=== PATIENT | female | born 1975 | race Hispanic/Latino ===

== ENCOUNTER 2017-03-14 15:42 | Emergency (ER) | payer OTHER ==
[~2017-03-14] VITALS: Ht 165.1 cm; Wt 104.3 kg
[~2017-03-14 15:42] MED LIST: ASPIRIN81 MG PO; ATORVASTATIN CA80 MG PO; FERROUS FUMARA324 MG PO; LISINOPRIL20 MG PO; LYRICA75 MG PO; METFORMIN HCL500 MG PO; OMEGA 3 1,0001 EACH PO; VITAMIN C1000 MG PO
[2017-03-14] MEDS ORDERED: ONDANSETRON HCL INJ 2 MG/ML VIAL IV STA ×2 (15:48→19:34)
[2017-03-14] MEDS ORDERED: SODIUM CHLORIDE 0.9% 1000ML 1,000 ML IV STA (15:48)
[2017-03-14] MEDS ORDERED: MORPHINE SULFATE 4 MG/ML SYR IV STA ×2 (15:48→19:34)
[2017-03-14 16:41] LABS: BILIRUBIN,URINE NEGATIVE (NEGATIVE); KETONES,URINE NEGATIVE (NEGATIVE); LEUKOCYTE ESTERASE ,URINE NEGATIVE (NEGATIVE); NITRITE,URINE NEGATIVE (NEGATIVE); PROTEIN,URINE DIPSTICK NEGATIVE (NEGATIVE); URINE UROBILINOGEN 0.2 mg/dL (0.2 - 1)
[2017-03-14 16:43] LABS: CLARITY,URINE CLEAR (CLEAR); COLOR,URINE YELLOW (YELLOW)
[2017-03-14 17:00] LABS: BACTERIA,URINE MODERATE /HPF; EPITHELIAL CELLS,URINE MODERATE /LPF
--- NOTE | 2017-03-14 18:47 | Diagnostic Imaging Report ---
PROCEDURE: CT ABDOMEN AND PELVIS WITHOUT CONTRAST TECHNIQUE: The abdomen and pelvis were scanned utilizing a multidetector helical scanner from the diaphragm to the lesser trochanter without contrast per stone protocol. Coronal and sagittal multiplanar reformations were obtained. Total DLP: 795.79 mGy-cm COMPARISON: CT abdomen pelvis 09/12/2016. INDICATIONS: RIGHT FLANK PAIN FINDINGS: ABSENCE OF INTRAVENOUS CONTRAST DECREASES SENSITIVITY FOR DETECTION OF FOCAL LESIONS AND VASCULAR PATHOLOGY. LOWER THORAX: Subtle geographic ground glass opacity in the left lower lobe, which was previously present and likely represents mild air trapping. HEPATOBILIARY: No focal hepatic lesions. No biliary ductal dilatation. Cholecystectomy clips. SPLEEN: No splenomegaly. PANCREAS: No focal masses or ductal dilatation. ADRENALS: No adrenal nodules. KIDNEYS/URETERS: No hydronephrosis or solid mass lesions. No change in punctate calculi in the right kidney upper pole (image 73) and lower pole (image 32). Unchanged parenchymal calcification in the lower pole (series 3 image 98). No change in punctate calcification in the upper pole left kidney (series 3 image 69). No ureteral or bladder stone. PELVIC ORGANS/BLADDER: Unremarkable. PERITONEUM / RETROPERITONEUM: No free air or fluid. Calcified epiploic appendage in the left mid abdomen (series 3 image 124). LYMPH NODES: No lymphadenopathy. VESSELS: Unremarkable. Retroaortic left renal vein. GI TRACT: No distention or wall thickening. Partially visualized appendix is normal. BONES AND SOFT TISSUES: Unremarkable. IMPRESSION: Stable punctate bilateral renal calculi. Dictated by: Craig Conte M.D. on 03/14/2017 at 18:56 Electronically approved by: Craig Conte M.D. on 03/14/2017 at 18:56
[2017-03-14] MEDS ORDERED: SODIUM CHLORIDE 0.9% 1000ML 1,000 ML ONE (19:37)
[2017-03-14 19:38] LABS: BASOPHILS % 0.3 % (0.0-1.0); EOSINOPHILS # (AUTO) 0.2 (0.0-0.4); EOSINOPHILS % 2.2 % (0.0-6.0); HEMATOCRIT 31.7 % (34.2-44.1); HEMOGLOBIN 9.3 g/dL (12.0-16.0); LYMPHOCYTES # (AUTO) 3.4 (1.0-3.2); LYMPHOCYTES % 36.9 % (18.0-39.1); MEAN CORPUSCULAR HEMOGLOBIN 22.4 pg (28-32); MEAN CORPUSCULAR HGB CONC 29.3 g/dL (31-35); MEAN CORPUSCULAR VOLUME 76.4 fL (81-99); MONOCYTES # (AUTO) 0.7 (0.2-0.8); MONOCYTES % 7.1 % (4.4-11.3); NEUTROPHILS # (AUTO) 4.9 (2.1-6.9); NEUTROPHILS % 53.3 % (38.7-80.0); PLATELET COUNT 288 x10e3/uL (140-360); RED BLOOD COUNT 4.15 x10e6/uL (3.6-5.1); RED CELL DISTRIBUTION WIDTH 16.9 % (11.7-14.4)
[2017-03-14 19:53] LABS: ALANINE AMINOTRANSFERASE 12 IU/L (0-55); ALBUMIN 3.3 g/dL (3.5-5.0); ALBUMIN/GLOBULIN RATIO 0.8 (0.8-2.0); ALKALINE PHOSPHATASE 74 IU/L (40-150); ANION GAP 11.7 mmol/L (8-16); BLOOD UREA NITROGEN 12 mg/dL (7-26); BUN/CREATININE RATIO 15 (6-25); CALCIUM 8.7 mg/dL (8.4-10.2); CARBON DIOXIDE 25 mmol/L (22-29); CHLORIDE 108 mmol/L (98-107); CREATININE, SERUM 0.79 mg/dL (0.57-1.11); EST GLOMERULAR FILTRATION RATE > 60 ML/MIN (60-); GLUCOSE 112 mg/dL (74-118); POTASSIUM 3.7 mmol/L (3.5-5.1); SODIUM 141 mmol/L (136-145)
[2017-03-14] MEDS ORDERED: MORPHINE SULFATE 5 MG/ML VIAL ONE (20:27)
[2017-03-14 20:58] VITALS: BP 148/65
== END 2017-03-14 20:59 | disposition home or self-care (01) ==
LOC: ER 15:42
DX: R10.31 Right lower quadrant pain (principal); R11.0 Nausea; I10 Essential (primary) hypertension; E11.9 Type 2 diabetes mellitus without complications
CPT/HCPCS: 36415; 74176; 80053; 81001; 81025; 85025; 87086; 93005; 99284; J2270; J2405; J7030

== ENCOUNTER 2017-06-21 07:55 | Emergency (ER) | payer OTHER ==
[~2017-06-21] VITALS: Ht 165.1 cm; Wt 104.3 kg
--- OUTSIDE RECORDS SUMMARY | 2017-06-21 07:59 | XMS REPORT ---
Author Author [facility] Address Unknown Phone Unavailable Care Team Providers Care Pastry Sous Chef Name Role Phone EN SANDRA Unavailable Unavailable ELVIS SUN Unavailable Unavailable RY BRAY Unavailable Unavailable Problems This patient has no known problems. Allergies, Adverse Reactions, Alerts This patient has no known allergies or adverse reactions. Medications This patient has no known medications. Results Test Description Test Time Test Comments Text Results Atomic Results Result Comments CT ABDOMEN/PELVIS WO [place] [address] Patient Name: JOANNE STOUT MR #: [id number] : 1975 Age/Sex: 42/F Req #: [id number] Adm Physician: Ordered by: ALLA BETANCOURT ADVERTISING EDITOR Report #: [id number] Location: ER Room/Bed: Procedure: [id number] CT/CT ABDOMEN/PELVIS WO Exam Date: 03/14/17 Exam Time: 1757 REPORT STATUS: Signed PROCEDURE: CT ABDOMEN AND PELVIS WITHOUT CONTRAST TECHNIQUE: The abdomen and pelvis were scanned utilizing a multidetector helical scanner from the diaphragm to the lesser trochanter without contrast per stone protocol. Coronal and sagittal multiplanar reformations were obtained. Total DLP: 795.79 mGy- cm COMPARISON: CT abdomen pelvis 09/12/2016. INDICATIONS: RIGHT FLANK PAIN FINDINGS: ABSENCE OF INTRAVENOUS CONTRAST DECREASES SENSITIVITY FOR DETECTION OF FOCAL LESIONS AND VASCULAR PATHOLOGY. LOWER THORAX: Subtle geographic ground glass opacity in the left lower lobe, which was previously present and likely represents mild air trapping. HEPATOBILIARY: No focal hepatic lesions. No biliary ductal dilatation. Cholecystectomy clips. SPLEEN: No splenomegaly. PANCREAS: No focal masses or ductal dilatation. ADRENALS: No adrenal nodules. KIDNEYS/URETERS: No hydronephrosis or solid mass lesions. No change in punctate calculi in the right kidney upper pole (image 73) and lower pole (image 32). Unchanged parenchymal calcification in the lower pole (series 3 image 98). No change in punctate calcification in the upper pole left kidney (series 3 image 69). No ureteral or bladder stone. PELVIC ORGANS/BLADDER: Unremarkable. PERITONEUM / RETROPERITONEUM: No free air or fluid. Calcified epiploic appendage in the left mid abdomen (series 3 image 124). LYMPH NODES: No lymphadenopathy. VESSELS: Unremarkable. Retroaortic left renal vein. GI TRACT: No distention or wall thickening. Partially visualized appendix is normal. BONES AND SOFT TISSUES: Unremarkable. IMPRESSION: Stable punctate bilateral renal calculi. Dictated by: Craig Caldwell M.D. on 03/14/2017 at 18:56 Electronically approved by: Craig Caldwell M.D. on 2017 at 18:56 Dictated By: CRAIG CALDWELL MD 55 Transcribed By: JONNATHAN on 03/14/171855 COPY TO: ALLA BETANCOURT NP Stress Test - Treadmill ONLY [place] [address] Patient Name : JOANNE STOUT MR #: [id number] : 1975 Age/Sex: 42/F Adm Physician : ELVIS SUN MD Admit Date : 01/25/17 Location : [facility] Room/Bed : [place] [address] REPORT: Cardiology Report DATE OF STUDY: January 26, 2017 PROCEDURE TITLE Rest/stress single-isotope SPECT imaging with exercise stress and gated SPECT imaging. INDICATIONS: Chest pain. PROCEDURE: Patient performed treadmill exercise using a Forrest protocol, exercising for 4 minutes 26 seconds to stage 2, and completing an estimated work load of 7 metabolic equivalents (METS). The test was terminated due to fatigue. The heart rate was 80 beats per minute at baseline and increased to 162 beats per minute at peak exercise, which was 90% of maximum predicted heart rate. The rest blood pressure was 113/71 increased to 199/117 mmHg, which is a hypertensive response. Patient did not develop any symptoms other than fatigue during the procedure. The resting electrocardiogram showed normal sinus rhythm, and did not demonstrate any ST-segment changes consistent with myocardial ischemia. Myocardial perfusion imaging was performed at rest following the injection of 10.5 millicuries of tetrofosmin. At peak exercise, the patient was injected with 33 millicuries of tetrofosmin and exercise was continued for 1 minute. Gated post tomographic imaging was performed. FINDINGS: Overall quality of the study is fair. The left ventricular cavity is noted to be normal on the rest and stress studies. SPECT images demonstrate homogeneous trace effusion distribution throughout the myocardium. Gated SPECT imaging reveals normal myocardial thickening and wall motion. The left ventricular ejection fraction was normal. IMPRESSION: Myocardial perfusion imaging is normal. Overall, left ventricular systolic motion was normal without regional wall motion abnormalities. Job#: [id number] [facility] Signature Date Dictated By: ILIANA KLEIN MD Transcribed By: [facility] on 02/07/17 <Electronically signed by ILIANA KLEIN MD> <<Signature on File>>03/19/17 2448 COPY TO: CHEST SINGLE (NOT PORTABLE) [place] [address] Patient Name: JOANNE STOUT MR #: [id number] : 1975 Age/Sex: 41/F Req #: [id number] [facility] Physician: Ordered by: CHARO BOBO MD Report #: [id number] Location: Room/Bed: ___ Procedure: [id number] DX/CHEST SINGLE (NOT PORTABLE) Exam Date: 01/25/17 Exam Time: 1814 REPORT STATUS: Signed PROCEDURE: A single AP view of the chest. COMPARISON: Patients [facility], CT, CT ABDOMEN/PELVIS W, 08/14/2016, 20:33. Patients [facility], DX, CHEST SINGLE (NOT PORTABLE), 12/12/2016, 15:09. INDICATIONS: CHEST PAIN FINDINGS: Lines/tubes: None. Lungs: The lungs are well inflated. Stable 4 mm calcified granuloma in the lingula.. There is no evidence of pneumonia or pulmonary edema. Pleura: There is no pleural effusion or pneumothorax. Heart and mediastinum: The heart and the mediastinum are unremarkable. Bones: No acute bony abnormality. IMPRESSION: 1. No acute cardiopulmonary disease. Chester Cali M.D. Dictated by: Chester Cali M.D. on 01/25/2017 at 19:07 Electronically approved by: Chester Cali M.D. on 01/25/2017 at 19:07 Dictated By: CHESTER CALI MD 06 Transcribed By: JONNATHAN on 01/25/171906 COPY TO: CHARO BOBO MD CT BRAIN WO [place] [address] Patient Name: JOANNE STOUT MR #: [id number] : 1975 Age/Sex: 41/F Req #: [id number] Adm Physician: RY BRYA MD Ordered by: JANAE LOFTON MD Report #: [id number] Location: [facility] Room/Bed: [place] [address] Procedure: [id number] CT/CT BRAIN WO Exam Date: Exam Time: 1814 REPORT STATUS: Signed Examination: CT BRAIN WITHOUT CONTRAST History:Headache Comparison studies:None Technique: Axial images were obtained from the skull base to the vertex. Coronal and sagittal images reconstructed from the axial data. Intravenous contrast: None Findings: Scalp: No abnormalities. Bones: No fractures, blastic or lytic lesions. Brain sulci: Appropriate for age. Ventricles: Normal in size and configuration. No hydrocephalus. Extra-axial space: No abnormalities. Parenchyma: No abnormal densities. No masses, hemorrhage, acute or chronic vascular insults. Sellar/suprasellar region: No abnormalities. Craniocervical junction: Patent foramen magnum. No Chiari one malformation. Incidental findings: None. Impression: No intracranial abnormalities. Signed by: Dr. Moe Lai M.D. on 12/12/2016 6:50 PM Dictated By: MOE RYAN MD 49 COPY TO: JANAE LOFTON MD CHEST SINGLE (NOT PORTABLE) [place] [address] Patient Name: JOANNE STOUT MR #: [id number] : 1975 Age/Sex: 41/F Req #: [id number] Adm Physician: Ordered by: KAYLA KELSEY Report #: [id number] Location: ER Room/Bed: Procedure: [id number] DX/CHEST SINGLE (NOT PORTABLE) Exam Date : 12/12/16 Exam Time: 1015 REPORT STATUS: Signed PROCEDURE: CHEST SINGLE (NOT PORTABLE) TECHNIQUE: PA chest INDICATION: Shortness of breath; chest pain COMPARISON: None. FINDINGS: Calcified left midlung granuloma. Lungs otherwise clear and symmetrically inflated. No pleural effusions. Normal heart size and mediastinal contour. Normal pulmonary vasculature. Intact skeleton. CONCLUSION: 1. No acute abnormality. 2. Remote granulomatous disease. Dictated by: Alfonso Croft M.D. on 12/12/2016 at 15:38 Electronically approved by: Alfonso Croft M.D. on 12/12/2016 at 15:38 Dictated By: ALFONSO CROFT MD 1538 Transcribed By: JONNATHAN on 12/12/16 1538 COPY TO: KAYLA KELSEY
[2017-06-21] MEDS ORDERED: KETOROLAC TROMETHAMINE 30 MG/ML VIAL IV STA (08:18)
[2017-06-21] MEDS ORDERED: MORPHINE SULFATE 2 MG/ML SYR IV STA (08:18)
[2017-06-21] MEDS ORDERED: SODIUM CHLORIDE 0.9% 1000ML 1,000 ML IV STA (08:18)
[2017-06-21] MEDS ORDERED: ONDANSETRON HCL 4 MG ORAL DISINTEGRATING TAB ONE (08:47)
[2017-06-21 08:53] LABS: BASOPHILS % 0.3 % (0.0-1.0); EOSINOPHILS # (AUTO) 0.2 (0.0-0.4); EOSINOPHILS % 2.8 % (0.0-6.0); HEMATOCRIT 30.4 % (34.2-44.1); LYMPHOCYTES # (AUTO) 2.1 (1.0-3.2); LYMPHOCYTES % 34.8 % (18.0-39.1); MEAN CORPUSCULAR HEMOGLOBIN 21.8 pg (28-32); MEAN CORPUSCULAR HGB CONC 29.6 g/dL (31-35); MEAN CORPUSCULAR VOLUME 73.8 fL (81-99); MONOCYTES # (AUTO) 0.3 (0.2-0.8); MONOCYTES % 5.5 % (4.4-11.3); NEUTROPHILS # (AUTO) 3.5 (2.1-6.9); NEUTROPHILS % 56.3 % (38.7-80.0); PLATELET COUNT 310 x10e3/uL (140-360); RED BLOOD COUNT 4.12 x10e6/uL (3.6-5.1); RED CELL DISTRIBUTION WIDTH 17.1 % (11.7-14.4)
[2017-06-21] MEDS: ONDANSETRON HCL INJ 2 MG/ML VIAL IV STA ×2 (08:54→09:07)
[2017-06-21 08:59] LABS: PREGNANCY TEST, URINE NEGATIVE (NEGATIVE)
[2017-06-21 09:01] LABS: BILIRUBIN,URINE NEGATIVE (NEGATIVE); CLARITY,URINE SL CLOUDY (CLEAR); COLOR,URINE YELLOW (YELLOW); KETONES,URINE NEGATIVE (NEGATIVE); LEUKOCYTE ESTERASE ,URINE NEGATIVE (NEGATIVE); NITRITE,URINE NEGATIVE (NEGATIVE); PROTEIN,URINE DIPSTICK NEGATIVE (NEGATIVE); URINE UROBILINOGEN 0.2 mg/dL (0.2 - 1)
[2017-06-21 09:09] LABS: BACTERIA,URINE FEW /HPF; EPITHELIAL CELLS,URINE MODERATE /LPF; RBC,URINE 0-5 /HPF (0-5)
[2017-06-21] MEDS ORDERED: ONDANSETRON HCL 4 MG ORAL DISINTEGRATING TAB PO ONE (09:15)
[2017-06-21 09:16] LABS: ALANINE AMINOTRANSFERASE 14 IU/L (0-55); ALBUMIN 3.1 g/dL (3.5-5.0); ALBUMIN/GLOBULIN RATIO 0.8 (0.8-2.0); ALKALINE PHOSPHATASE 68 IU/L (40-150); ANION GAP 12.2 mmol/L (8-16); BLOOD UREA NITROGEN 15 mg/dL (7-26); BUN/CREATININE RATIO 19 (6-25); CALCIUM 8.7 mg/dL (8.4-10.2); CARBON DIOXIDE 23 mmol/L (22-29); CHLORIDE 107 mmol/L (98-107); CREATININE, SERUM 0.78 mg/dL (0.57-1.11); EST GLOMERULAR FILTRATION RATE > 60 ML/MIN (60-); GLUCOSE 116 mg/dL (74-118); POTASSIUM 4.2 mmol/L (3.5-5.1); SODIUM 138 mmol/L (136-145)
--- NOTE | 2017-06-21 10:50 | Diagnostic Imaging Report ---
PROCEDURE: CT ABDOMEN AND PELVIS WITHOUT CONTRAST TECHNIQUE: The abdomen and pelvis were scanned utilizing a multidetector helical scanner from the diaphragm to the lesser trochanter. No IV contrast was administered as per physician request. Coronal and sagittal multiplanar reformations were obtained. COMPARISON: CT abdomen and pelvis 03/14/2017. INDICATIONS: RIGHT FLANK PAIN FINDINGS: ABSENCE OF INTRAVENOUS CONTRAST DECREASES SENSITIVITY FOR DETECTION OF FOCAL LESIONS AND VASCULAR PATHOLOGY. LOWER THORAX: Normal. HEPATOBILIARY: No focal hepatic lesions. No biliary ductal dilatation. Cholecystectomy. SPLEEN: No splenomegaly. PANCREAS: No focal masses or ductal dilatation. ADRENALS: No adrenal nodules. KIDNEYS/URETERS: 3.5 mm calculus is present in the inferior pole of the right kidney, series 3 image 102. Punctate calculus is present in the superior pole of the right kidney, series 3 image 81. Punctate calculus is present in the superior pole of the left kidney, series 3 image 77. No hydronephrosis, obstructing calculi, or solid mass lesions. PELVIC ORGANS/BLADDER: Normal uterus and ovaries. Normal urinary bladder. PERITONEUM / RETROPERITONEUM: No free air or fluid. LYMPH NODES: No lymphadenopathy. VESSELS: Unremarkable. GI TRACT: No distention or wall thickening. Normal appendix. Moderate amount of retained feces limits intraluminal evaluation of the colon. BONES AND SOFT TISSUES: Unremarkable. IMPRESSION: Bilateral nonobstructing nephrolithiasis. Dictated by: Vazquez Carmona M.D. on 06/21/2017 at 10:51 Electronically approved by: Vazquez Carmona M.D. on 06/21/2017 at 10:51
[2017-06-21 11:29] VITALS: BP 133/79
== END 2017-06-21 11:35 | disposition home or self-care (01) ==
LOC: ER 07:55
DX: R10.31 Right lower quadrant pain (principal); D64.9 Anemia, unspecified; I10 Essential (primary) hypertension; E11.9 Type 2 diabetes mellitus without complications; E78.5 Hyperlipidemia, unspecified
CPT/HCPCS: 36415; 74176; 80053; 81001; 81025; 83690; 85025; 99284; J1885; J2270; J7030

== ENCOUNTER → 2017-10-24 | Outpatient (CLI) | payer OTHER ==
[~2017-10-24] MED LIST changes: +DIATRIZOATE MEGL/DIATRIZOA SOD 30 ML BTL PO ONE; +IOPAMIDOL 370 MG/ML 200 ML INFUS..BTL INJ ONE; +SODIUM CHLORIDE 0.9% 50ML 50 ML ONE
[2017-10-24 17:03] LABS: BLOOD UREA NITROGEN 15 mg/dL (7-26); BUN/CREATININE RATIO 18 (6-25); CREATININE, SERUM 0.84 mg/dL (0.57-1.11); EST GLOMERULAR FILTRATION RATE > 60 ML/MIN (60-)
--- NOTE | 2017-10-24 18:29 | Diagnostic Imaging Report ---
EXAMINATION: CT of the abdomen and pelvis with contrast. TECHNIQUE: Helical CT images of the abdomen and pelvis were performed from the lung bases to the lesser trochanters after the intravenous administration of 100 cc of Isovue 300 and the oral administration of Gastroview. Coronal and sagittal reformatted images were obtained. Dose modulation, iterative reconstruction, and/or weight based adjustment of the mA/kV was utilized to reduce the radiation dose to as low as reasonably achievable. COMPARISON: None. CLINICAL HISTORY:Abdominal pain DISCUSSION: ABDOMEN/PELVIS: LOWER THORAX:Unremarkable. HEPATOBILIARY: No focal hepatic lesions. No intra-or extrahepatic biliary ductal dilation. Cholecystectomy. SPLEEN: No splenomegaly. PANCREAS: No focal masses or ductal dilatation. ADRENALS: No adrenal nodules. KIDNEYS/URETERS: 2 mm nonobstructing calculus right kidney. Left kidney normal. PELVIC ORGANS/BLADDER: The bladder is normal. PERITONEUM/RETROPERITONEUM: No free air or fluid. LYMPH NODES: No intra-abdominal, retroperitoneal, pelvic or inguinal lymphadenopathy. VESSELS: Unremarkable GI TRACT: No distention or wall thickening. BONES AND SOFT TISSUE: No bony destructive lesions. No soft tissue abnormalities. IMPRESSION: No acute CT finding. Stable 2 mm calculus right kidney Signed by: Dr. Stanley Robertson M.D. on 10/24/2017 6:25 PM
== END ==
LOC: CT 15:53
PROVIDERS: ATTEND Family Medicine
DX: R10.9 Unspecified abdominal pain (principal)
CPT/HCPCS: 36415; 74177; 82565; 84520; Q9967

== ENCOUNTER 2018-02-26 12:23 | Emergency (ER) | payer OTHER ==
[~2018-02-26] VITALS: Ht 165.1 cm; Wt 104.3 kg
[~2018-02-26 12:23] MED LIST changes: -DIATRIZOATE MEGL/DIATRIZOA SOD 30 ML BTL PO ONE; -IOPAMIDOL 370 MG/ML 200 ML INFUS..BTL INJ ONE; -SODIUM CHLORIDE 0.9% 50ML 50 ML ONE
[2018-02-26 14:54] LABS: BASOPHILS % 0.4 % (0.0-1.0); EOSINOPHILS # (AUTO) 0.2 (0.0-0.4); EOSINOPHILS % 2.2 % (0.0-6.0); HEMOGLOBIN 9.6 g/dL (12.0-16.0); LYMPHOCYTES # (AUTO) 2.8 (1.0-3.2); LYMPHOCYTES % 33.3 % (18.0-39.1); MEAN CORPUSCULAR HEMOGLOBIN 21.6 pg (28-32); MEAN CORPUSCULAR HGB CONC 29.1 g/dL (31-35); MEAN CORPUSCULAR VOLUME 74.2 fL (81-99); MONOCYTES # (AUTO) 0.5 (0.2-0.8); MONOCYTES % 5.6 % (4.4-11.3); NEUTROPHILS % 58.3 % (38.7-80.0); PLATELET COUNT 333 x10e3/uL (140-360); RED BLOOD COUNT 4.45 x10e6/uL (3.6-5.1); RED CELL DISTRIBUTION WIDTH 16.9 % (11.7-14.4)
[2018-02-26 14:57] LABS: BILIRUBIN,URINE NEGATIVE (NEGATIVE); CLARITY,URINE SL CLOUDY (CLEAR); COLOR,URINE YELLOW (YELLOW); KETONES,URINE NEGATIVE (NEGATIVE); LEUKOCYTE ESTERASE ,URINE NEGATIVE (NEGATIVE); NITRITE,URINE NEGATIVE (NEGATIVE); PROTEIN,URINE DIPSTICK NEGATIVE (NEGATIVE); URINE UROBILINOGEN 0.2 mg/dL (0.2 - 1)
[2018-02-26 14:58] LABS: INR 0.84; PROTHROMBIN TIME 12.3 seconds (11.9-14.5)
[2018-02-26 14:59] LABS: PARTIAL THROMBOPLASTIN TIME 26.4 seconds (23.8-35.5)
[2018-02-26 15:09] LABS: ALANINE AMINOTRANSFERASE 14 IU/L (0-55); ALBUMIN 3.1 g/dL (3.5-5.0); ALBUMIN/GLOBULIN RATIO 0.7 (0.8-2.0); ALKALINE PHOSPHATASE 88 IU/L (40-150); AMYLASE 58 U/L (25-125); BLOOD UREA NITROGEN 13 mg/dL (7-26); BUN/CREATININE RATIO 11 (6-25); CALCIUM 8.9 mg/dL (8.4-10.2); CARBON DIOXIDE 25 mmol/L (22-29); CHLORIDE 104 mmol/L (98-107); CREATINE KINASE 69 IU/L (29-168); EST GLOMERULAR FILTRATION RATE 49 ML/MIN (60-); GLUCOSE 159 mg/dL (74-118); LIPASE 28 U/L (8-78); SODIUM 135 mmol/L (136-145)
[2018-02-26 15:13] LABS: BACTERIA,URINE MANY /HPF; EPITHELIAL CELLS,URINE MANY /LPF; HYALINE CASTS 0-1 (0-1)
--- NOTE | 2018-02-26 15:39 | Diagnostic Imaging Report ---
Examination: Single AP view of the chest. COMPARISON: Single chest 01/25/2017 INDICATION: Pain in stomach that radiates to upper back, nausea IMPRESSION: 1. Lines and Tubes: None 2. Mildly hypoinflated lungs. No consolidation or pulmonary edema. 3. Cardiomediastinal silhouette is normal. Pulmonary vasculature is normal. 4. No acute bony abnormalities. Signed by: Dr. Chester Cali M.D. on 02/26/2018 3:36 PM
[2018-02-26] MEDS ORDERED: ACETAMINOPHEN 325 MG TAB PO ONE (19:30)
[2018-02-26] MEDS ORDERED: NITROGLYCERIN 2% OINT 1 GM PKT TOP ONE (20:00)
--- NOTE | 2018-02-26 20:00 | NUR ---
EKG PERFORMED IN TRIAGE AND GIVEN TO ER MD FOR REVIEW
[2018-02-26 20:15] LABS: STREPTOCOCCUS GRP A ANTIGEN NEGATIVE (NEGATIVE)
[2018-02-26 20:25] LABS: INFLUENZAE A&B ANTIGEN (RAPID) NEGATIVE (NEGATIVE)
--- NOTE | 2018-02-26 21:44 | NUR ---
PT TO TRIAGE FOR REASSESSMENT; MEDICATED PER PROTOCOL; V/S REASSESSED
[2018-02-26] MEDS ORDERED: LISINOPRIL 20 MG TAB PO ONE (21:45)
[2018-02-26] MEDS ORDERED: DONNATAL/LIDOCAINE/MAALOX 30 ML SUSP PO SCH (21:45)
[2018-02-26] MEDS ORDERED: MAGNESIUM/ALUMINUM/SIMETHICONE 30 ML UDC ONE (21:47)
[2018-02-26] MEDS ORDERED: BELLADONNA ALK/PHENOBARBITAL 5 ML UDC ONE (21:47)
[2018-02-26] MEDS ORDERED: LIDOCAINE VISC 2% SOLN 15 ML UDC ONE (21:47)
[2018-02-26] MEDS ORDERED: MORPHINE SULFATE 2 MG/ML SYR IV PRN (22:15)
[2018-02-26] MEDS ORDERED: FAMOTIDINE 20 MG TAB PO SCH (22:15)
[2018-02-26] MEDS ORDERED: ONDANSETRON HCL INJ 2 MG/ML VIAL IV PRN (22:15)
[2018-02-26] MEDS ORDERED: NITROGLYCERIN 0.4 MG SUBL SL PRN (22:15)
[2018-02-26] MEDS ORDERED: SODIUM CHLORIDE FLUSH 10 ML SYR INJ PRN (22:15)
[2018-02-26] MEDS ORDERED: METOPROLOL TARTRATE 25 MG TAB PO SCH (22:15)
[2018-02-26] MEDS ORDERED: SODIUM CHLORIDE 0.9% 1000ML 1,000 ML ONE (22:52)
[2018-02-26] MEDS ORDERED: SODIUM CHLORIDE 0.9% 1000ML 1,000 ML IV ONE (23:00)
[2018-02-26 23:39] LABS: CREATINE KINASE 64 IU/L (29-168)
[2018-02-26] MEDS ORDERED: IOPAMIDOL 370 MG/ML 200 ML INFUS..BTL INJ ONE (23:46)
[2018-02-26] MEDS ORDERED: SODIUM CHLORIDE 0.9% 50ML 50 ML ONE (23:46)
--- NOTE | 2018-02-27 00:56 | Diagnostic Imaging Report ---
EXAM: CT ABDOMEN/PELVIS W DATE: 02/26/2018 10:08 PM INDICATION: Epigastric abdominal pain COMPARISON: 10/24/2017, 06/21/2017, 08/14/2016 TECHNIQUE: The abdomen and pelvis were scanned using a multidetector helical scanner. Coronal and sagittal reformations were obtained. CT low dose techniques were utilized, as applicable. IV Contrast: 100 ml Isovue 300/370 FINDINGS: LOWER THORAX: Incidental left basilar calcified granuloma and scarring. Right basilar cystic change (image 8). LIVER/BILIARY: No masses. No ductal dilatation. GALLBLADDER: Surgically absent SPLEEN: Unremarkable PANCREAS: Unremarkable ADRENALS: Stable 1.1 cm left adrenal nodule KIDNEYS: Nonobstructing 5 mm right lower pole renal calculus. Suspected mildly complex cystic lesion of the right lower pole with peripheral calcification, difficult to evaluate due to corticomedullary phase of contrast (axial image 50) but more conspicuous than on priors. GI TRACT: Small hiatal hernia. Mild gastric wall thickening. No evidence of obstruction. Appendix is not clearly seen but no evidence of appendicitis. VESSELS: Unremarkable PERITONEUM/RETROPERITONEUM: No free air or fluid LYMPH NODES: No lymphadenopathy REPRODUCTIVE ORGANS/BLADDER: Somewhat limited by streak artifact in the pelvis. Otherwise unremarkable. SOFT TISSUES: No acute findings BONES: No suspicious bone lesions. IMPRESSION: 1. Findings which can be seen with gastritis. 2. Mildly complex right inferior renal cystic lesion, poorly assessed due to phase of contrast. Recommend nonemergent follow-up CT renal mass protocol. Signed by: Dr Felisa Mello MD on 02/27/2018 12:52 AM
[2018-02-27 01:08] VITALS: BP 169/97
[2018-02-27] MEDS ORDERED: ASPIRIN 81 MG ENTERIC COATED PO SCH (09:00)
[2018-02-27] MEDS ORDERED: LISINOPRIL 10 MG TAB PO SCH (09:00)
== END 2018-02-27 01:12 | disposition home or self-care (01) ==
LOC: ER 12:23 → ERHOLD 02-27 00:36 → UNDOADMIN 02-27 00:36 → ERHOLD 02-27 02:59
DX: R07.89 Other chest pain (principal); R10.13 Epigastric pain; R11.0 Nausea; I10 Essential (primary) hypertension; E11.9 Type 2 diabetes mellitus without complications; E78.5 Hyperlipidemia, unspecified
CPT/HCPCS: 36415; 71045; 74177; 80053; 81001; 82150; 82550; 82553; 83518; 83690; 84484; 85025; 85610; 85730; 87070; 87400; 93005; 99284; J7030; Q9967

== ENCOUNTER → 2021-04-23 | Day surgery (SDC) | payer OTHER ==
[2021-04-22 10:14] LABS: BASOPHILS % 0.4 % (0.0-1.0); EOSINOPHILS # (AUTO) 0.1 (0.0-0.4); EOSINOPHILS % 1.7 % (0.0-6.0); HEMATOCRIT 35.5 % (34.2-44.1); HEMOGLOBIN 10.7 g/dL (12.0-16.0); LYMPHOCYTES # (AUTO) 3.2 (1.0-3.2); LYMPHOCYTES % 41.2 % (18.0-39.1); MEAN CORPUSCULAR HEMOGLOBIN 23.3 pg (28-32); MEAN CORPUSCULAR HGB CONC 30.1 g/dL (31-35); MEAN CORPUSCULAR VOLUME 77.3 fL (81-99); MONOCYTES # (AUTO) 0.5 (0.2-0.8); MONOCYTES % 6.1 % (4.4-11.3); NEUTROPHILS # (AUTO) 3.8 (2.1-6.9); NEUTROPHILS % 49.4 % (38.7-80.0); PLATELET COUNT 304 x10e3/uL (140-360); RED BLOOD COUNT 4.59 x10e6/uL (3.6-5.1)
[2021-04-22 10:43] LABS: ALBUMIN 3.3 g/dL (3.5-5.0); ALBUMIN/GLOBULIN RATIO 0.8 (0.8-2.0); ANION GAP 11.5 mmol/L (8-16); CALCIUM 9.1 mg/dL (8.4-10.2); CREATININE, SERUM 0.88 mg/dL (0.57-1.11); POTASSIUM 4.5 mmol/L (3.5-5.1)
[~2021-04-23] MED LIST changes: +AMLODIPINE BESYL5 MG PO; +ATROPINE SULFATE 1 MG/ML VIAL ONE; +BENICAR20 MG PO; +BUPIVACAINE HCL 0.5% INJ 30 ML VIAL INJ ONE; +DEXAMETHASONE SOD PHOS INJ 4 MG/ML SDV ONE; +FENTANYL CITRATE/PF 100MCG/2 ML INJ ONE; +HUMALOG SC; +HYDROCODONE/APAP 7.5MG-325MG 1 EA TAB ONE; +KETOROLAC TROMETHAMINE 30 MG/ML VIAL ONE; +LIDOCAINE HCL 2% LOCAL INJ 5 ML SDV VIAL INJ ONE; +MIDAZOLAM HCL 2 MG/2 ML VIAL ONE; +NEOSTIGMINE 1 MG/ML 10ML VIAL ONE; +ONDANSETRON HCL INJ 2MG/ML 2ML 2 MG/ML VIAL ONE; +POVIDONE IODINE 0.05% 0.05 % ML PO ONE; +PROPOFOL IV EMULSION 10 MG/ML 20 ML VIAL ONE; +SERTRALINE HCL50 MG PO; +SEVOFLURANE INHAL SOLN 250 ML PEN BTL ONE
[2021-04-23 17:10] VITALS: BP 163/95
== END | disposition home or self-care (01) ==
LOC: OR 11:50
PROVIDERS: ATTEND Surgery
DX: G44.89 Other headache syndrome (principal); I10 Essential (primary) hypertension; E11.9 Type 2 diabetes mellitus without complications; Z01.810 Encounter for preprocedural cardiovascular examination; Z01.812 Encounter for preprocedural laboratory examination; Z20.822 Contact with and (suspected) exposure to COVID-19; Z79.4 Long term (current) use of insulin; Z79.899 Other long term (current) drug therapy
CPT/HCPCS: 36415 ×2; 37609; 80053; 81025; 82948; 85025; 88305; 88313; 93005; J0461; J1100; J1885; J2001; J2250; J2405; J2704; J2710; J3010; U0002